=== PATIENT | male | born 1945 | race Caucasian/White ===

== ENCOUNTER 2023-06-07 17:44 | Emergency (ER) | payer MEDICARE, SELFPAY ==
--- NOTE | ~2023-06-07 | XR_ITS ---
EXAMINATION: XR chest 2V DATE: 06/07/2023 18:29 INDICATION: Cough TECHNIQUE: Frontal and lateral views of the chest are obtained COMPARISON: None available FINDINGS: Minimal airspace opacities of the left lung base. No pleural effusion or pneumothorax. The cardiomediastinal silhouette is normal. There is moderate thoracic spondylosis. IMPRESSION: 1. Minimal left basilar airspace opacities, consistent with atelectasis versus pneumonia. Reviewed, dictated and finalized at location F. [employer]
--- NOTE | 2023-06-07 17:53 | ED.FEVER ---
HPI - Fever General Chief Complaint: Fever Stated Complaint: Fever/Nausea Time Seen by Provider: 06/07/23 18:10 Source: patient Mode of arrival: ambulatory Limitations: no limitations History of Present Illness HPI Narrative: Steph is a 77-year-old male patient presenting to the clinic today with complaints of fever, nausea, headache, cough, and chills. He reports the symptoms started this morning. SpO2 94% on room air. Highest temperature was 99.9?. Denies any shortness of breath or chest pain currently. Related Data Home Medications Medication Instructions Recorded Confirmed allopurinol 300 mg tablet 300 mg PO DAILY 06/07/23 06/07/23 amlodipine 5 mg tablet 5 mg PO DAILY 06/07/23 06/07/23 atorvastatin 40 mg tablet 40 mg PO DAILY 06/07/23 06/07/23 fenofibrate nanocrystallized 145 145 mg PO DAILY 06/07/23 06/07/23 mg tablet hydralazine 50 mg tablet 50 mg PO DAILY 06/07/23 06/07/23 isosorbide mononitrate 60 mg 60 mg PO DAILY 06/07/23 06/07/23 tablet,extended release 24 hr lisinopril 40 mg tablet 40 mg PO DAILY 06/07/23 06/07/23 metoprolol tartrate 25 mg tablet 25 mg PO DAILY 06/07/23 06/07/23 pantoprazole 40 mg tablet,delayed 40 mg PO DAILY 06/07/23 06/07/23 release Allergies Allergy/AdvReac Type Severity Reaction Status Date / Time No Known Allergies Allergy Verified 06/07/23 18:20 Review of Systems Review of Systems: Pertinent positives per HPI. Patient denies any rash, visual changes, dizziness, shortness of breath, chest pain, palpitations, nausea, vomiting, diarrhea, constipation, abdominal pain, or any urinary issues. PMFSH Comments At the time of my signature, I reviewed and agree with the nursing past medical, surgical, social, and family history. There is no relevant family history pertinent to the patient complaint. Exam Narrative: General: Well-developed, well nourished, in no apparent distress Head: Normocephalic, atraumatic Eyes: Pupils equally round and reactive to light bilaterally, EOM intact, sclera and conjunctive clear, no discharge, lids normal Ears: TMs intact and clear, ear canals clear, no drainage, grossly hearing normal. Nose: Nares patent, clear nasal discharge, no inflammation, no sinus tenderness. Mouth: Oral pharynx red without lesions or masses, good dentition, MMM. Neck: Supple, trachea midline, no enlargement of anterior or posterior cervical nodes, no thyroid masses or goiter palpable. Cardio: Regular rate and rhythm, s1 and s2 normal, no murmur appreciated. Resp: Diminished in the bases, no rhonchi, rales, wheezing or rubs Course Course Emergency Course: Portions of this record may have been created with voice recognition software. Level of Care: Express Care Visit Vital Signs Vital signs: Vital signs reviewed MDM - Fever MDM Narrative Medical decision making narrative: At the time of visit patient is resting comfortably on the exam table. Patient appears to be nontoxic. COVID and influenza testing was negative. Strep test was positive. Chest x-ray was performed and shows probable left lower lobe pneumonia versus atelectasis. Supportive measures were discussed with the patient and they voiced understanding discharge instructions and agrees to treatment plan. Return precautions reviewed Differential Diagnosis Differential diagnosis: Likely fever of unknown origin, community acquired pneumonia, viral infection, sepsis, influenza and other (URI, strep pharyngitis,) Imaging Data Radiologist's impression: ITS Impressions Chest X-Ray 06/07/23 18:31 IMPRESSION: 1. Minimal left basilar airspace opacities, consistent with atelectasis versus pneumonia. Discharge Plan Discharge Clinical Impression: Acute streptococcal pharyngitis Pneumonia Qualifiers: Pneumonia type: due to unspecified organism Laterality: left Lung location: lower lobe of lung Qualified Code(s): J18.9 - Pneumonia, unspecified organism Patient Dispo
[2023-06-07 18:05] VITALS: BP 187/71; PULSE 97; RESP 20; TEMP 37.7; O2SAT 94
== END 2023-06-07 18:47 | disposition home or self-care (01) ==
PROVIDERS: Emergency Provider Nurse Practitioner Family; PCP Physician Assistant Medical
DX: J02.0 Streptococcal pharyngitis (principal); J18.1 Lobar pneumonia, unspecified organism; Z20.822 Contact with and (suspected) exposure to COVID-19; E78.00 Pure hypercholesterolemia, unspecified; I10 Essential (primary) hypertension
CPT/HCPCS: 71046; 87426; 87804; 87880; 99213; G0463

== ENCOUNTER 2024-05-25 14:48 | Emergency (ER) | payer MEDICARE, SELFPAY ==
[2024-05-25 14:57] VITALS: BP 139/63; PULSE 72; RESP 20; TEMP 36.2; O2SAT 98
--- NOTE | 2024-05-25 15:01 | ED_ITS ---
HPI - URI/Sore Throat General Chief Complaint: Upper Respiratory Infection Stated Complaint: sore throat,sinus drainage Time Seen by Provider: 05/25/24 14:50 Source: patient Mode of arrival: ambulatory Limitations: no limitations History of Present Illness HPI Narrative: Patient is a 78-year-old male who presents with 2 weeks of sinus drainage, sinus pressure, sore throat cough. Denies any fever, chills, nausea, vomiting, diarrhea. Has been using Flonase. Related Data Home Medications ?Medication ?Instructions ?Recorded ?Confirmed ?Last Taken ?Type allopurinol 300 mg tablet 300 mg PO DAILY 06/07/23 05/25/24 Unknown History amlodipine 5 mg tablet 5 mg PO DAILY 06/07/23 05/25/24 Unknown History atorvastatin 40 mg tablet 40 mg PO DAILY 06/07/23 05/25/24 Unknown History fenofibrate nanocrystallized 145 145 mg PO DAILY 06/07/23 05/25/24 Unknown History mg tablet hydralazine 50 mg tablet 50 mg PO DAILY 06/07/23 05/25/24 Unknown History isosorbide mononitrate 60 mg 60 mg PO DAILY 06/07/23 05/25/24 Unknown History tablet,extended release 24 hr lisinopril 40 mg tablet 40 mg PO DAILY 06/07/23 05/25/24 Unknown History metoprolol tartrate 25 mg tablet 25 mg PO DAILY 06/07/23 05/25/24 Unknown History pantoprazole 40 mg tablet,delayed 40 mg PO DAILY 06/07/23 05/25/24 Unknown History release Allergies Allergy/AdvReac Type Severity Reaction Status Date / Time cefuroxime Allergy Severe Difficulty Verified 05/25/24 15:08 Breathing Review of Systems Review of Systems: All systems reviewed & are unremarkable except as noted in HPI and below Constitutional: Constitutional: Denies body ache(s), Denies chills, Denies fatigue, Denies fever(s), Denies headache(s), Denies malaise and Denies weakness Eyes: Eyes: Denies blurry vision, Denies itchy eyes and Denies loss of vision ENT: Denies otalgia, Denies headache(s), Reports nasal congestion, Denies sinus pain, Reports sinus pressure and Reports sore throat Cardiovascular: Cardiovascular: Denies chest pain, Denies irregular heart rhythm and Denies dyspnea Respiratory: Respiratory: Reports cough and Denies dyspnea Gastrointestinal: Gastrointestinal: Denies abdominal pain, Denies diarrhea, Denies nausea and Denies vomiting Musculoskeletal: Musculoskeletal: Denies back pain, Denies myalgias and Denies arthralgias Integumentary/Breasts: Skin/Breast: Denies pruritus and Denies rash Neurologic: Denies headache(s), Denies loss of vision and Denies weakness Psychiatric: Psychiatric: Reports no additional psychiatric complaints Endocrine: Endocrine: Denies fatigue Allergic/Immunologic: Allergic/Immunologic: Denies itchy eyes PMFSH Comments At time of signature, agree with nursing past medical, surgical, social and family history. There is no relevant family history pertinent to the presenting complaint. Exam Const: General: cooperative, healthy appearing, comfortable, no acute distress and well nourished Nutritional Appearance: well nourished Orientation/consciousness: patient oriented x3 Limitations: no limitations HENMT: Head: normal to inspection, normocephalic and atraumatic Ears: hearing grossly normal bilaterally, external ears normal, TM's normal bilaterally, EAC's normal and no periauricular adenopathy Face/Nose/Sinus: Normal external nose present, Abnormal mucous membranes and turbinates present erythematous bilateral and diffuse, normal facial exam, face symmetric and Facial tenderness on exam of face and sinuses Face and sinus: normal facial exam and face symmetric Mouth: Yes Normal oral and palatal mucosa present, Yes lip normal, Yes tongue normal, Yes Normal salivary glands and ducts present, Yes oropharynx normal and Yes moist mucous membranes Teeth and gingiva: dentition normal Throat: posterior oropharynx normal, tonsils normal and uvu la midline Eyes: General: appearance normal, both eyes and all related structures Alignment and Position: alignment normal and position normal Periorbital: periorbital findings normal Eyelids: eyelids normal Pupils: Equal, round and reactive pupils present Neck: Neck: normal visual inspection, full ROM, no lymphadenopathy and supple Chest: Chest palpation & inspection: normal inspection of the chest and normal palpation of entire chest wall Resp: Effort & Inspection: normal respiratory effort and able to speak in complete sentences Auscultation: clear to auscultation bilaterally, no crackles, no rales, no rhonchi and no wheezes Cardio: Rate: regular rate Rhythm: regular rhythm Heart sounds: S1 normal heart sound present and S2 normal heart sound present GI: Inspection: normal to inspection Skin: General skin exam: normal color and no rashes or lesions noted Neuro: General: patient oriented x3 and moves all extremities Cranial nerves: Yes Equal, round and reactive pupils present Speech: normal speech Gait exam (Neuro): Normal gait present Extrem: General: normal to inspection, full ROM and no edema Psych: Appearance: grossly normal and well kempt Mental Status: mental status grossly normal Speech and movement: Normal speech and movement present Affect: normal affect Attitude: cooperative Thought process: Normal thought process present Course Course Emergency Course: Discharge instructions reviewed with patient, as well as provided in writing per nursing staff. The instructions also include specific and strict return/GO TO THE ER as well as f/u information. All questions have been answered, and the patient deny any further questions with discharge and discharge plan. Portions of this record may have been created with voice recognition software Level of Care: Express Care Visit Vital Signs Vital signs: Reviewed MDM - URI/Sore Throat MDM Narrative Medical decision making narrative: Pt well hydrated appearing, in no respiratory distress, hemodynamically stable. Recommend supportive care. The patient is stable at time of discharge the clinical impression was discussed and the patient was given the opportunity to ask questions, which were addressed as completely as possible given the information available at present. Anticipatory guidance and return to care precautions were discussed and the importance of primary care follow-up was stressed and encouraged. The patient voiced understanding of the plan, indications to return, and the need for follow-up. Differential diagnosis considered: Snell virus, strep pharyngitis, allergic rhinitis, upper respiratory tract infection, sinusitis, rhinosinusitis, nasopharyngitis. viral pharyngitis, otitis media, otitis externa, otitis effusi on, foreign body, cerumen impaction, viral syndrome, and influenza.? Exam findings show no acute concerns or changes; patient is non-toxic appearing and is in no distress.? Patient is appropriate for outpatient treatment and follow- up.? Medical Records Attestation: I reviewed the patient's medical records. Lab Data Attestation: I reviewed the patient's lab results. Discharge Plan Discharge Clinical Impression: Sinusitis Qualifiers: Sinusitis location: pansinusitis Chronicity: acute Recurrence: non-recurrent Qualified Code(s): J01.40 - Acute pansinusitis, unspecified Patient Disposition: Home, Self-Care Condition: Stable Instructions: Sinusitis (ED) Additional Instructions: Take antibiotic as prescribed. Take steroids per package instructions. Use Tessalon Perles as needed for cough. Use inhaler as needed. Other symptomatic treatments include: -Alternate Tylenol and Motrin per package directions for fever or pain. -Antihistamine medication such as Benadryl at night and Zyrtec/Claritin/Peggy during the day can help improve symptoms. -Use Flonase twice a day for 5 days then daily to help reduce the inflammation and dry up your sinuses. -You can also use Sudafed or Mucinex. Be sure to drink plenty of water with these medications at least 8 ounces with every dose and it is important to drink 8 to 10 glasses of water per day. Water is a natural decongestant -Eat and drink things that are easy to swallow, like tea or soup, or popsicles. -Oral rinses such as: Salt water gargles and/or may use topical anesthetic (eg. Chloraseptic spray) or lozenges to relieve dryness or throat pain). -Frequent hand washing or hand college recruiter is one of the best ways to prevent spread of infection. -Using a vaporizer or humidifier at night will also help thin secretions and help with coughing up phlegm. -Follow up with primary care provider in 3-5 days if condition is not improving - For new or worsening symptoms go directly to the nearest ER Patient Language: Tunisian Prescriptions: New benzonatate 100 mg capsule 100 mg PO BID PRN (Reason: cough) Qty: 14 0RF doxycycline monohydrate 100 mg tablet 100 mg PO BID 10 Days Qty: 20 0RF methylprednisolone [Medrol (Alexi)] 4 mg tablets,dose pack See Rx Instructions .ROUTE .COMPLEX Qty: 21 0RF Rx Instructions: orally per package directions albuterol sulfate 90 mcg/actuation HFA aerosol inhaler 2 puff inhalation QID PRN (Reason: shortness of breath or wheezing) Qty: 6.7 0RF No Action atorvastatin 40 mg tablet 40 mg PO DAILY amlodipine 5 mg tablet 5 mg PO DAILY isosorbide mononitrate 60 mg tablet extended release 24 hr 60 mg PO DAILY pantoprazole 40 mg tablet,delayed release (DR/EC) 40 mg PO DAILY allopurinol 300 mg tablet 300 mg PO DAILY hydralazine 50 mg tablet 50 mg PO DAILY lisinopril 40 mg tablet 40 mg PO DAILY metoprolol tartrate 25 mg tablet 25 mg PO DAILY fenofibrate nanocrystallized 145 mg tablet 145 mg PO DAILY Follow-up/Referrals: Feliciano,ADINA Araiza [Primary Care Provider] - 3 Days Time of Disposition: 15:43
[2024-05-25 15:16] LABS: EDSTREPNEGPOS1 Negative (Negative)
== END 2024-05-25 15:52 | disposition home or self-care (01) ==
PROVIDERS: Emergency Provider Nurse Practitioner Family; PCP Physician Assistant Medical
DX: J01.40 Acute pansinusitis, unspecified (principal); E78.00 Pure hypercholesterolemia, unspecified; I10 Essential (primary) hypertension
CPT/HCPCS: 87081; 87880; 99213; G0463